=== PATIENT | female | born 1995 | race Caucasian/White ===

== ENCOUNTER 2022-05-12 06:00 | Day surgery (SDC) | payer OTHER ==
[2022-05-11 14:03] LABS: APPEARANCE,URINE CLEAR (CLEAR); BILIRUBIN,URINE NEGATIVE (NEGATIVE); COLOR,URINE COLORLESS (YELLOW); GLUCOSE, URINE (UA) NEGATIVE (NEGATIVE); KETONES,URINE NEGATIVE (NEGATIVE); LEUKOCYTE ESTERASE ,URINE 75 Leu/uL (NEGATIVE); NITRATE,URINE NEGATIVE (NEGATIVE); OCCULT BLOOD,URINE NEGATIVE (NEGATIVE); PH,URINE 7.5 (5.0-8.0); PROTEIN,URINE NEGATIVE (NEGATIVE); UROBILINOGEN,URINE 0.2 mg/dL (0.2-1.0)
[2022-05-11 14:10] LABS: BASOPHILS % (AUTO) 0.9 % (0.0-5.0); EOSINOPHILS % (AUTO) 1.5 % (0.0-8.0); HEMATOCRIT 38.9 % (36-48); LYMPHOCYTES % (AUTO) 27.8 % (21.0-51.0); MEAN CORPUSCULAR HEMOGLOBIN 31.8 pg (27.0-33.0); MEAN CORPUSCULAR HGB CONC 34.4 g/dL (32.0-36.0); MEAN CORPUSCULAR VOLUME 92.4 fL (79-99); MONOCYTES % (AUTO) 4.1 % (3.0-13.0); NEUTROPHILS % (AUTO) 65.3 % (40.0-77.0); PLATELET COUNT (AUTO) 217 K/uL (130-400); RED BLOOD CELL COUNT(AUTO) 4.21 MIL/uL (4.00-5.50); RED CELL DISTRIBUTION WIDTH 11.5 % (11.0-15.5); WHITE BLOOD COUNT (AUTO) 6.8 K/uL (4.8-10.8)
[2022-05-11 14:20] LABS: BACTERIA,URINE RARE /HPF (None Seen); RBC,URINE 0-1 /HPF (0-1); SQUAMOUS EPITHELIAL CELL,UR FEW /HPF (0-2)
[2022-05-11 15:13] VITALS: BP 134/82
[~2022-05-12] VITALS: Ht 172.7 cm; Wt 59.0 kg
[2022-05-12] VITALS (21 sets, daily range): BP systolic 117–131; BP diastolic 72–86
[~2022-05-12 06:00] MED LIST: ETHI1TAB18 PO; LEVO50CA4 PO
[2022-05-12] MEDS ORDERED: LACTATED RINGERS 1000ML 1,000 ML IV ONE ×2 (06:53→07:49)
[2022-05-12] MEDS ORDERED: GLYCOPYRROLATE 1 MG/5 ML SYRINGE ONE (10:36)
[2022-05-12] MEDS ORDERED: PROPOFOL 10 MG/ML 20ML VIAL IV ONE (10:36)
[2022-05-12] MEDS ORDERED: ROCURONIUM 10MG/1ML SYR 10 MG/ML ML ONE (10:37)
[2022-05-12] MEDS ORDERED: FENTANYL CITRATE PF 50 MCG/1 ML 2ML VIAL ONE ×2 (10:37→14:12)
[2022-05-12] MEDS ORDERED: MIDAZOLAM HCL 1 MG/ML 2ML VIAL ONE (10:37)
[2022-05-12] MEDS ORDERED: LIDOCAINE PF 100MG/5ML (2%) SYRINGE 5ML ONE (10:38)
[2022-05-12] MEDS ORDERED: CEFAZOLIN SODIUM 2 GM VIAL IVPB ONE (11:00)
[2022-05-12] MEDS ORDERED: ONDANSETRON 4MG INJ ONE ×2 (11:09→13:18)
[2022-05-12] MEDS ORDERED: NEOSTIGMINE 5MG/5ML SYR IV ONE (11:59)
[2022-05-12] MEDS ORDERED: MEPERIDINE-PF 25 MG/ML SYG ONE ×3 (12:21→13:37)
[2022-05-12] MEDS ORDERED: KETOROLAC 30MG VIAL (30MG/ML) ONE (13:18)
== END 2022-05-12 15:45 | disposition home or self-care (01) ==
LOC: DAH 06:00
PROVIDERS: ATTEND Obstetrics & Gynecology
DX: D27.1 Benign neoplasm of left ovary (principal); D27.0 Benign neoplasm of right ovary; Z20.822 Contact with and (suspected) exposure to COVID-19; Z79.899 Other long term (current) drug therapy; Z83.438 Family history of other disorder of lipoprotein metabolism and other lipidemia
CPT/HCPCS: 84703; 85025; 86850; 86900; 86901; 87088 ×2; 87426; 81001; 36415; 58662; A4649; A4606; A4452; A4344; A4215 ×2; J7120 ×2; J3010 ×2; J3490; J2710; J2001; J2250; J2704; J2405 ×2; J1885; J2175 ×3; J0690; C1769 ×2; A4223; A6402; A4222; A4221; A4663; A4510; A4600

== ENCOUNTER 2022-05-17 17:00 | Emergency (ER) | payer OTHER ==
[~2022-05-17] VITALS: Ht 172.7 cm; Wt 59.0 kg
[2022-05-17] MEDS ORDERED: 0.9%NACL 1000ML 1,000 ML IV SCH (20:30)
[2022-05-17 20:37] LABS: BASOPHILS % (AUTO) 0.5 % (0.0-5.0); EOSINOPHILS % (AUTO) 2.4 % (0.0-8.0); HEMATOCRIT 29.3 % (36-48); LYMPHOCYTES % (AUTO) 14.7 % (21.0-51.0); MEAN CORPUSCULAR HEMOGLOBIN 32.4 pg (27.0-33.0); MEAN CORPUSCULAR HGB CONC 34.5 g/dL (32.0-36.0); MEAN CORPUSCULAR VOLUME 93.9 fL (79-99); MONOCYTES % (AUTO) 10.3 % (3.0-13.0); NEUTROPHILS % (AUTO) 71.5 % (40.0-77.0); PLATELET COUNT (AUTO) 239 K/uL (130-400); RED BLOOD CELL COUNT(AUTO) 3.12 MIL/uL (4.00-5.50); RED CELL DISTRIBUTION WIDTH 11.6 % (11.0-15.5); WHITE BLOOD COUNT (AUTO) 10.2 K/uL (4.8-10.8)
[2022-05-17 20:40] VITALS: BP 120/73
[2022-05-17 20:51] LABS: CREATININE 0.6 mg/dL (0.5-1.5); INR 0.94 (0.85-1.15); POTASSIUM 3.8 mmol/L (3.5-5.1); PROTHROMBIN TIME 10.3 SEC (9.6-11.6)
[2022-05-17 20:52] LABS: PARTIAL THROMBOPLASTIN TIME 30.2 SEC (26.3-35.5)
[2022-05-17 20:55] LABS: TOTAL PROTEIN, SERUM 7.3 g/dL (6.0-8.3)
[2022-05-17] MEDS ORDERED: IBUP-1493 PO (21:00)
== END 2022-05-17 21:18 | disposition home or self-care (01) ==
LOC: EDH 17:00
DX: S30.23XA Contusion of vagina and vulva, initial encounter (principal); E03.9 Hypothyroidism, unspecified; Z88.0 Allergy status to penicillin; Z79.899 Other long term (current) drug therapy; X58.XXXA Exposure to other specified factors, initial encounter; Y93.89 Activity, other specified; Y92.89 Other specified places as the place of occurrence of the external cause; Y99.8 Other external cause status
CPT/HCPCS: 99283; 96360; 80053; 85025; 85610; 85730; 36415; J7030

== ENCOUNTER 2022-05-23 23:34 | Emergency (ER) | payer OTHER ==
[~2022-05-23] VITALS: Ht 172.7 cm; Wt 59.0 kg
[~2022-05-23 23:34] MED LIST changes: +IBUP-1493 PO
[2022-05-23 23:40] VITALS: BP 124/76
== END 2022-05-24 00:05 | disposition home or self-care (01) ==
LOC: EDH 23:34
DX: L76.22 Postprocedural hemorrhage of skin and subcutaneous tissue following other procedure (principal); E03.9 Hypothyroidism, unspecified; Z88.0 Allergy status to penicillin; Z79.899 Other long term (current) drug therapy; Z98.890 Other specified postprocedural states

== ENCOUNTER 2022-05-24 19:13 | Emergency (ER) | payer OTHER ==
[~2022-05-24] VITALS: Ht 172.7 cm; Wt 59.0 kg
[2022-05-24 20:01] VITALS: BP 115/62
== END 2022-05-24 20:17 | disposition home or self-care (01) ==
LOC: EDH 19:13
DX: Z48.817 Encounter for surgical aftercare following surgery on the skin and subcutaneous tissue (principal); E03.9 Hypothyroidism, unspecified; Z79.1 Long term (current) use of non-steroidal anti-inflammatories (NSAID); Z88.0 Allergy status to penicillin
CPT/HCPCS: 99281